=== PATIENT | male | born 1960 | race Caucasian/White ===

== ENCOUNTER 2017-04-05 18:38 | Emergency (ER) | payer OTHER ==
[~2017-04-05] VITALS: Ht 180.3 cm; Wt 123.6 kg
[~2017-04-05 18:38] MED LIST: BENTYL20 MG PO; CATAPRES0.1 MG PO; FOLIC ACID1 MG PO; LEXAPRO20 MG PO; LIBRIUM25 MG PO; METFORMIN HCL500 MG PO; METRONIDAZOLE500 MG PO; OMEPRAZOLE40 M1 PO; PERCOCET 5/31 TABLET PO; PRINIVIL20 MG PO; PROMETHAZINE HC25 M1 PO; RISPERIDONE1 MG PO; SEROQUEL100 MG PO; SOMA250 MG PO; THIAMINE HCL100 MG PO; TRAZODONE HCL50 MG PO; ZOFRAN4 MG PO
[2017-04-05 18:46] VITALS: BP 145/93
== END 2017-04-05 19:33 | disposition left against medical advice (07) ==
LOC: EME 18:38
DX: R10.9 Unspecified abdominal pain (principal); Z53.21 Procedure and treatment not carried out due to patient leaving prior to being seen by health care provider
CPT/HCPCS: 93005; 99281

== ENCOUNTER 2017-04-18 13:22 | Inpatient (IN) | payer OTHER ==
[~2017-04-18] VITALS: Ht 180.3 cm; Wt 123.5 kg
[2017-04-18 15:39] LABS: EOSINOPHIL (%) 0.5 % (0-5); HEMATOCRIT 46.2 % (38.0-50.0); IMMATURE GRANULOCYTE (%) 0.3 % (0.0-0.7); INSTRUMENT ABS NEUTROPHIL CT 4.9 K/uL; LYMPHOCYTE COUNT 1.8 K/uL (1.0-2.8); MCH 31.2 PG (29.0-34.0); MCHC 35.9 G/DL (30.0-36.0); MCV 86.8 FL (86-99); MEAN PLAT.VOLUME 10.8 uM^3 (9.0-12.4); MONOCYTE (%) 9.3 % (3-12); MONOCYTE COUNT 0.7 K/uL (0-0.8); NEUTROPHIL (%) 65.2 % (45-76); NEUTROPHIL COUNT 4.9 K/uL (1.8-6.4); PLATELET COUNT 176 K/uL (156-360); RBC DIS.WIDTH-CV 12.8 % (11.8-14.6); RBC DIS.WIDTH-SD 40.2 % (39-53); RED BLOOD COUNT 5.32 M/uL (4.00-5.50); WHITE BLOOD COUNT 7.5 K/uL (4.1-10.2)
[2017-04-18 15:58] LABS: CHLORIDE 103 mEq/L (99-109); POTASSIUM 3.5 mEq/L (3.7-5.4); SODIUM 136 mEq/L (136-147)
[2017-04-18 16:00] LABS: GLUCOSE 133 mg/dL (70-99)
[2017-04-18 16:01] LABS: ANION GAP 10 MEQ/L (2-14)
[2017-04-18 16:02] LABS: TOTAL BILIRUBIN 0.9 mg/dL (0.0-1.0)
[2017-04-18 16:03] LABS: SERUM ETHYL ALCOHOL < 10 mg/dL
[2017-04-18 16:03] LABS: AMPHETAMINE NEGATIVE (500 ng/mL); BARBITURATES NEGATIVE (200 ng/mL); BENZODIAZEPINES PRESUMPTIVE POSITIVE (150 ng/mL); COCAINE PRESUMPTIVE POSITIVE (150 ng/mL); INTERNAL CONTROLS VALID? YES; METHADONE NEGATIVE (200 ng/mL); METHAMPHETAMINE NEGATIVE (500 ng/mL); OPIATES (MORPHINE) NEGATIVE (100 ng/mL); OXYCODONE NEGATIVE (100 ng/mL); PHENCYCLIDINE NEGATIVE (25 ng/mL); PROPOXYPHENE NEGATIVE (300 ng/mL); THC CANNABINOIDS PRESUMPTIVE POSITIVE (50 ng/mL); TRICYCLIC ANTIDEPRESSANTS NEGATIVE (300 ng/mL)
[2017-04-18 16:04] LABS: GFR ESTIMATE (CALCULATED) > 59 mL/min/
[2017-04-18 16:04] LABS: ADD MEDTOX COMMENT Y
[2017-04-18 16:05] LABS: ALKALINE PHOSPHATASE 72 IU/L (3-129)
[2017-04-18 16:06] LABS: DIRECT BILIRUBIN 0.3 mg/dL (0.0-0.3); UREA NITROGEN (BUN) 11 mg/dL (9-23)
[2017-04-18 16:07] LABS: SALICYLATE < 5.0 MG/DL (15-30)
[2017-04-18 16:09] LABS: LIPASE 40 U/L (1.0-51.0)
[2017-04-18 16:48] LABS: BENZODIAZEPINES, URINE SCREEN POSITIVE (200 ng/mL)
[2017-04-18] MEDS ORDERED: PERCOCET 7.51 TABLET PO (19:32)
[2017-04-18] MEDS ORDERED: TIZANIDINE HCL4 MG PO (19:32)
[2017-04-18] MEDS ORDERED: DURAGESIC25 MCG TD (19:32)
[2017-04-18 20:03] LABS: ADD MIUA? YES; BILIRUBIN NEGATIVE; BLOOD NEGATIVE; COLOR AMBER ((YELLOW)); GLUCOSE (STRIP) 50; KETONES 20; LEUKOCYTES NEGATIVE; NITRITE NEGATIVE; PROTEIN (STRIP) 100; SPECIFIC GRAVITY 1.019 (1.000-1.030)
[2017-04-18 21:29] LABS: Estimated Average Glucose 134 mg/dL (70-123); HEMOGLOBIN A1c (GLYCOHEMOGLOB) 6.3 % HGB (Below 5.7)
[2017-04-18 21:36] LABS: RED BLOOD CELLS 0-5 /HPF (0-5)
[2017-04-18 21:37] LABS: EPITHELIAL CELLS 1+ /HPF; WHITE BLOOD CELLS 0-5 /HPF (0-5); WHITE BLOOD CELLS CLUMP RARE /HPF (0-5)
[2017-04-18 21:38] LABS: BACTERIA RARE /HPF; UCUL ADDED? NO
[2017-04-18 21:39] LABS: AMORPHOUS URATES CRYSTALS 4+; CALCIUM OXALATE CRYSTALS RARE /HPF; HYALINE CASTS RARE /LPF; MUCUS 3+ /LPF
[2017-04-18 22:26] VITALS: BP 135/94
[2017-04-19] VITALS (7 sets, daily range): BP systolic 132–158; BP diastolic 86–100
[2017-04-19 00:50] LABS: METH RESISTANT S AUREUS PCR NEGATIVE (NEGATIVE)
[2017-04-19 00:51] LABS: PROBE CHECK PASS; SPECIMEN PROCESSING CONTROL PASS
[2017-04-19 06:37] LABS: ALKALINE PHOSPHATASE 49 IU/L (3-129); ANION GAP 5 MEQ/L (2-14); CHLORIDE 105 MEQ/L (99-109); GFR ESTIMATE (CALCULATED) > 59 mL/min/; SAMPLE HEMOLYSIS CHECK 0; SAMPLE ICTERIC CHECK 0; SAMPLE LIPEMIA CHECK 0; SODIUM 136 MEQ/L (136-147); TOTAL BILIRUBIN 0.9 MG/DL (0.0-1.0); UREA NITROGEN (BUN) 10 mg/dL (9-23)
[2017-04-19 06:47] LABS: GLUCOSE 89 mg/dL (70-99)
[2017-04-19 06:54] LABS: HEMATOCRIT 39.2 % (38.0-50.0); MCH 31.3 PG (29.0-34.0); MCHC 34.7 G/DL (30.0-36.0); MCV 90.3 FL (86-99); MEAN PLAT.VOLUME 10.7 uM^3 (9.0-12.4); PLATELET COUNT 144 K/uL (156-360); RBC DIS.WIDTH-CV 13.3 % (11.8-14.6); RBC DIS.WIDTH-SD 44.2 % (39-53); RED BLOOD COUNT 4.34 M/uL (4.00-5.50); WHITE BLOOD COUNT 5.3 K/uL (4.1-10.2)
[2017-04-19 17:30] LABS: POINT-OF-CARE METER ID UU14162513
[2017-04-20 00:30] VITALS: BP 150/88
[2017-04-20 04:04] VITALS: BP 139/83
[2017-04-20 05:50] LABS: EOSINOPHIL (%) 3.4 % (0-5); EOSINOPHIL COUNT 0.1 K/uL (0-0.3); HEMATOCRIT 39.2 % (38.0-50.0); IMMATURE GRANULOCYTE (%) 0.5 % (0.0-0.7); INSTRUMENT ABS NEUTROPHIL CT 1.9 K/uL; LYMPHOCYTE COUNT 1.6 K/uL (1.0-2.8); MCH 31.7 PG (29.0-34.0); MCHC 34.7 G/DL (30.0-36.0); MCV 91.4 FL (86-99); MEAN PLAT.VOLUME 11.1 uM^3 (9.0-12.4); MONOCYTE (%) 10.2 % (3-12); MONOCYTE COUNT 0.4 K/uL (0-0.8); NEUTROPHIL (%) 45.8 % (45-76); NEUTROPHIL COUNT 1.9 K/uL (1.8-6.4); PLATELET COUNT 136 K/uL (156-360); RBC DIS.WIDTH-CV 13.4 % (11.8-14.6); RED BLOOD COUNT 4.29 M/uL (4.00-5.50); WHITE BLOOD COUNT 4.1 K/uL (4.1-10.2)
[2017-04-20 06:40] LABS: ALKALINE PHOSPHATASE 51 IU/L (3-129); ANION GAP 5 MEQ/L (2-14); CHLORIDE 103 MEQ/L (99-109); GFR ESTIMATE (CALCULATED) > 59 mL/min/; GLUCOSE 105 mg/dL (70-99); MAGNESIUM 2.2 mg/dl (1.3-2.7); POTASSIUM 3.8 MEQ/L (3.7-5.4); SAMPLE HEMOLYSIS CHECK 0; SAMPLE ICTERIC CHECK 0; SAMPLE LIPEMIA CHECK 0; SODIUM 137 MEQ/L (136-147); UREA NITROGEN (BUN) 10 mg/dL (9-23)
[2017-04-20 06:42] LABS: TOTAL BILIRUBIN 0.7 MG/DL (0.0-1.0)
[2017-04-20 08:56] VITALS: BP 128/64
[2017-04-20 09:30] LABS: TROP-I INTERPRETATION NEGATIVE; TROPONIN-I 0.02 ng/mL (0.0-0.30)
[2017-04-20 11:37] VITALS: BP 142/92
[2017-04-20 12:17] LABS: HIV-1/2 AB/AG COMBO Nonreactive
[2017-04-20 13:42] LABS: TROP-I INTERPRETATION NEGATIVE; TROPONIN-I 0.01 ng/mL (0.0-0.30)
[2017-04-20 15:50] VITALS: BP 141/88
[2017-04-20 19:56] LABS: TROP-I INTERPRETATION NEGATIVE; TROPONIN-I < 0.01 ng/mL (0.0-0.30)
[2017-04-20 20:09] VITALS: BP 130/86
[2017-04-22 08:42] LABS: HCV RNA (LOG IU/mL) 7.2 (<1.18)
== END 2017-04-20 20:42 | disposition left against medical advice (07) | DRG 917 ==
LOC: EME 13:22 → EDOF 20:03 → 5WEST 21:40
PROVIDERS: Emergency Medicine; Internal Medicine; Physician Assistant Medical
DX: T40.5X2A Poisoning by cocaine, intentional self-harm, initial encounter (principal); G92 Toxic encephalopathy; T40.7X2A Poisoning by cannabis (derivatives), intentional self-harm, initial encounter; A09 Infectious gastroenteritis and colitis, unspecified; G89.29 Other chronic pain; E66.9 Obesity, unspecified; F17.210 Nicotine dependence, cigarettes, uncomplicated; B18.2 Chronic viral hepatitis C; F10.10 Alcohol abuse, uncomplicated; I10 Essential (primary) hypertension; F11.10 Opioid abuse, uncomplicated; F12.10 Cannabis abuse, uncomplicated; F14.10 Cocaine abuse, uncomplicated; I47.2 Ventricular tachycardia; Z68.37 Body mass index [BMI] 37.0-37.9, adult; E11.40 Type 2 diabetes mellitus with diabetic neuropathy, unspecified; F32.89 Other specified depressive episodes; F41.9 Anxiety disorder, unspecified
CPT/HCPCS: 74177; 80048; 80053; 80076; 81003; 82948; 83036; 83630; 83690; 83735; 84484; 84999; 85025; 85027; 86703; 87177; 87493; 87522 90; 87641; 93005; 99281; 99285; C9113; G0378; G0480; J1644; J2060; J2270; J2405; J3411; J3475; J7030

== ENCOUNTER 2017-04-25 14:28 | Emergency (ER) | payer OTHER ==
[~2017-04-25] VITALS: Ht 180.3 cm; Wt 123.8 kg
[~2017-04-25 14:28] MED LIST changes: +DURAGESIC25 MCG TD; +PERCOCET 7.51 TABLET PO; +TIZANIDINE HCL4 MG PO
[2017-04-25 15:00] LABS: ADD MIUA? NO; BILIRUBIN NEGATIVE; BLOOD NEGATIVE; COLOR YELLOW ((YELLOW)); GLUCOSE (STRIP) NEGATIVE; KETONES NEGATIVE; LEUKOCYTES NEGATIVE; NITRITE NEGATIVE; PROTEIN (STRIP) NEGATIVE; SPECIFIC GRAVITY 1.006 (1.000-1.030); UCUL ADDED? NO; UROBILINOGEN 0.2 MG/DL (0.2-1.0)
[2017-04-25 16:01] LABS: HEMATOCRIT 40.9 % (38.0-50.0); MCH 31.5 PG (29.0-34.0); MCHC 35.2 G/DL (30.0-36.0); MCV 89.5 FL (86-99); MEAN PLAT.VOLUME 11.4 uM^3 (9.0-12.4); PLATELET COUNT 165 K/uL (156-360); RBC DIS.WIDTH-CV 13.6 % (11.8-14.6); RBC DIS.WIDTH-SD 44.1 % (39-53); RED BLOOD COUNT 4.57 M/uL (4.00-5.50); WHITE BLOOD COUNT 5.2 K/uL (4.1-10.2)
[2017-04-25 16:17] LABS: CHLORIDE 105 mEq/L (99-109); POTASSIUM 3.4 mEq/L (3.7-5.4); SODIUM 139 mEq/L (136-147)
[2017-04-25 16:19] LABS: GLUCOSE 122 mg/dL (70-99)
[2017-04-25 16:20] LABS: ANION GAP 11 MEQ/L (2-14)
[2017-04-25 16:23] LABS: GFR ESTIMATE (CALCULATED) > 59 mL/min/
[2017-04-25 16:30] LABS: TOTAL BILIRUBIN 0.5 MG/DL (0.0-1.0); UREA NITROGEN (BUN) 6 mg/dL (9-23)
[2017-04-25 16:31] LABS: ALKALINE PHOSPHATASE 61 IU/L (3-129); LIPASE 31 U/L (1.0-51.0); SERUM ETHYL ALCOHOL < 10 mg/dL
[2017-04-25 18:05] LABS: TROP-I INTERPRETATION NEGATIVE; TROPONIN-I < 0.01 ng/mL (0.0-0.30)
[2017-04-25 18:29] VITALS: BP 150/91
== END 2017-04-25 18:31 | disposition home or self-care (01) ==
LOC: EME 14:28
DX: R10.9 Unspecified abdominal pain (principal); S30.1XXD Contusion of abdominal wall, subsequent encounter; W19.XXXD Unspecified fall, subsequent encounter; Z87.442 Personal history of urinary calculi; I10 Essential (primary) hypertension; E11.9 Type 2 diabetes mellitus without complications; R56.9 Unspecified convulsions; Z86.14 Personal history of Methicillin resistant Staphylococcus aureus infection; F17.200 Nicotine dependence, unspecified, uncomplicated
CPT/HCPCS: 73564; 74020; 74177; 80053; 81003; 83690; 84484; 85027; 93005; 99281; 99285; G0480; J3010; J7030

== ENCOUNTER 2017-09-30 16:48 | Inpatient (IN) | payer OTHER ==
[~2017-09-30] VITALS: Ht 180.3 cm; Wt 115.0 kg
[~2017-09-30 16:48] MED LIST changes: -DURAGESIC25 MCG TD; +DURAGESIC50 MCG TD; +PERCOCET 10/1 TABLET PO; -PERCOCET 7.51 TABLET PO
[2017-09-30 17:43] LABS: HEMATOCRIT 37.5 % (38.0-50.0); MCH 32.2 PG (29.0-34.0); MCHC 35.7 G/DL (30.0-36.0); MCV 90.1 FL (86-99); PLATELET COUNT 221 K/uL (156-360); RBC DIS.WIDTH-CV 13.2 % (11.8-14.6); RBC DIS.WIDTH-SD 43.3 % (39-53); RED BLOOD COUNT 4.16 M/uL (4.00-5.50); WHITE BLOOD COUNT 7.8 K/uL (4.1-10.2)
[2017-09-30 17:51] LABS: CHLORIDE 95 mEq/L (99-109); POTASSIUM 2.9 mEq/L (3.7-5.4); SODIUM 133 mEq/L (136-147)
[2017-09-30 17:53] LABS: GLUCOSE 139 mg/dL (70-99)
[2017-09-30 17:54] LABS: ANION GAP 15 MEQ/L (2-14)
[2017-09-30 17:57] LABS: GFR ESTIMATE (CALCULATED) > 59 mL/min/ (58.99-99999); UREA NITROGEN (BUN) 13 mg/dL (9-23)
[2017-09-30 18:05] LABS: TROP-I INTERPRETATION NEGATIVE; TROPONIN-I < 0.01 ng/mL (0.0-0.30)
[2017-09-30 19:05] LABS: TOTAL BILIRUBIN 0.5 mg/dL (0.0-1.0)
[2017-09-30 19:06] LABS: ALKALINE PHOSPHATASE 121 IU/L (3-129)
[2017-09-30 19:08] LABS: DIRECT BILIRUBIN 0.3 mg/dL (0.0-0.3)
[2017-09-30 19:09] LABS: LIPASE 59 U/L (1.0-51.0)
[2017-09-30] MEDS ORDERED: DULOXETINE HCL60 MG PO (20:59)
[2017-09-30] MEDS ORDERED: LATUDA60 MG PO (20:59)
[2017-09-30] MEDS ORDERED: METOPROLOL SUCC25 MG PO (21:00)
[2017-09-30] MEDS ORDERED: LOSARTAN POTASS50 MG PO (21:01)
[2017-09-30] MEDS ORDERED: LORAZEPAM1 MG PO (21:01)
[2017-09-30] MEDS ORDERED: HYGROTON25 MG PO (21:02)
[2017-09-30] MEDS ORDERED: TRAMADOL HCL50 MG PO (21:02)
[2017-09-30] MEDS ORDERED: IBUPROFEN400 MG PO (21:02)
[2017-09-30] MEDS ORDERED: BACTRIM,SEPT1 TABLET PO (21:02)
[2017-09-30] MEDS ORDERED: LATUDA40 MG PO (21:03)
[2017-09-30] MEDS ORDERED: BUPROPION HCL100 M1 PO (21:04)
[2017-09-30] MEDS ORDERED: DULOXETINE HCL30 MG PO (21:05)
[2017-09-30] MEDS ORDERED: LOPRESSOR25 MG PO (21:05)
[2017-10-01 02:41] VITALS: BP 139/91
[2017-10-01 02:49] LABS: MAGNESIUM 1.3 mg/dL (1.3-2.7)
[2017-10-01 02:53] LABS: SERUM ETHYL ALCOHOL < 10 mg/dL
[2017-10-01 03:00] VITALS: BP 134/90
[2017-10-01 03:13] LABS: POINT-OF-CARE METER ID UU14149397
[2017-10-01 04:04] VITALS: BP 134/90
[2017-10-01 04:17] LABS: ADD MIUA? NO; BILIRUBIN NEGATIVE; BLOOD NEGATIVE; COLOR YELLOW ((YELLOW)); GLUCOSE (STRIP) NEGATIVE; KETONES NEGATIVE; LEUKOCYTES NEGATIVE; NITRITE NEGATIVE; PROTEIN (STRIP) NEGATIVE; SPECIFIC GRAVITY 1.013 (1.000-1.030); UCUL ADDED? NO; UROBILINOGEN 0.2 MG/DL (0.2-1.0)
[2017-10-01 04:59] LABS: AMPHETAMINES QUANT VALUE 0 NG/ML; BARBITUATES QUANT VALUE 0 NG/ML; BENZODIAZEPINES QUANT VALUE 0 NG/ML; BENZODIAZEPINES, URINE SCREEN Negative (200 ng/mL); PHENCYCLIDINE QUANT VALUE 0 NG/ML
[2017-10-01 07:01] LABS: POINT-OF-CARE METER ID UU14149397
[2017-10-01 07:41] VITALS: BP 153/81
[2017-10-01 13:20] LABS: POINT-OF-CARE METER ID UU14149397
[2017-10-01 17:05] LABS: POINT-OF-CARE METER ID UU14208753
[2017-10-01 19:34] VITALS: BP 132/79
[2017-10-01 23:37] VITALS: BP 126/79
[2017-10-02 00:04] LABS: POINT-OF-CARE METER ID UU14188577
[2017-10-02 04:23] VITALS: BP 116/66
[2017-10-02 06:10] LABS: POINT-OF-CARE METER ID UU14188577
[2017-10-02 08:04] VITALS: BP 127/80
[2017-10-02 11:29] VITALS: BP 124/75
[2017-10-02 11:44] LABS: POINT-OF-CARE METER ID UU14188577
[2017-10-02 16:06] VITALS: BP 109/64
[2017-10-02 16:29] LABS: POINT-OF-CARE METER ID UU14188577
[2017-10-02 19:15] VITALS: BP 112/66
[2017-10-02 21:32] LABS: POINT-OF-CARE METER ID UU14117124
[2017-10-03 00:09] VITALS: BP 122/64
[2017-10-03 04:43] VITALS: BP 110/61
[2017-10-03 06:18] LABS: POINT-OF-CARE METER ID UU14117124
[2017-10-03 07:48] VITALS: BP 122/84
[2017-10-03 11:01] VITALS: BP 118/69
[2017-10-03 11:30] LABS: POINT-OF-CARE METER ID UU14117124
[2017-10-03 15:40] VITALS: BP 122/77
[2017-10-03 16:52] LABS: POINT-OF-CARE METER ID UU14208753
[2017-10-04 00:11] VITALS: BP 159/61
[2017-10-04 06:43] LABS: POINT-OF-CARE METER ID UU14117124
[2017-10-04 08:20] VITALS: BP 134/76
[2017-10-04] MEDS ORDERED: FENTANYL1 EAC1 TD (09:15)
[2017-10-04] MEDS ORDERED: TRAMADOL HCL50 MG PO (09:15)
[2017-10-04] MEDS ORDERED: PERCOCET 2.51 TABLET PO (09:15)
[2017-10-04 12:10] LABS: POINT-OF-CARE METER ID UU14117124
== END 2017-10-04 13:38 | DRG 563 ==
LOC: EXP 16:48 → EME 16:48 → EDOF 10-01 00:50 → 3EAST 10-01 00:50 → ENRESERV 10-01 01:18 → 3EAST 10-01 02:32
PROVIDERS: Hospitalist; Physician Assistant; Surgery
PROC: 0SSGXZZ Reposition Left Ankle Joint, External Approach (ICD-10-PCS; principal; 2017-10-01)
PROC: HZ2ZZZZ Detoxification Services for Substance Abuse Treatment (ICD-10-PCS; 2017-10-01)
DX: S82.435A Nondisplaced oblique fracture of shaft of left fibula, initial encounter for closed fracture (principal); S93.05XA Dislocation of left ankle joint, initial encounter; S83.242A Other tear of medial meniscus, current injury, left knee, initial encounter; S83.412A Sprain of medial collateral ligament of left knee, initial encounter; S83.512A Sprain of anterior cruciate ligament of left knee, initial encounter; S83.522A Sprain of posterior cruciate ligament of left knee, initial encounter; S09.90XA Unspecified injury of head, initial encounter; W10.8XXA Fall (on) (from) other stairs and steps, initial encounter; Y92.008 Other place in unspecified non-institutional (private) residence as the place of occurrence of the external cause; R07.9 Chest pain, unspecified; E87.6 Hypokalemia; E87.1 Hypo-osmolality and hyponatremia; I10 Essential (primary) hypertension; F31.9 Bipolar disorder, unspecified; F17.200 Nicotine dependence, unspecified, uncomplicated; E11.40 Type 2 diabetes mellitus with diabetic neuropathy, unspecified; F14.10 Cocaine abuse, uncomplicated; F10.10 Alcohol abuse, uncomplicated; G89.4 Chronic pain syndrome; F11.10 Opioid abuse, uncomplicated; M54.5 Low back pain; K50.90 Crohn's disease, unspecified, without complications; F41.9 Anxiety disorder, unspecified; G43.909 Migraine, unspecified, not intractable, without status migrainosus; Z86.73 Personal history of transient ischemic attack (TIA), and cerebral infarction without residual deficits; Z82.49 Family history of ischemic heart disease and other diseases of the circulatory system
CPT/HCPCS: 70450; 71020; 72170; 73564; 73600; 73610; 73706; 73721; 80048; 80076; 80306 90; 81003; 82948; 83690; 83735; 84484; 85027; 93005; 99281; 99285; G0480; J1644; J2270; J2405; J3411; J7030; J7120

== ENCOUNTER 2017-10-21 12:58 | Day surgery (SDC) | payer OTHER ==
[~2017-10-21] VITALS: Ht 180.3 cm; Wt 125.0 kg
[~2017-10-21 12:58] MED LIST changes: +BACTRIM,SEPT1 TABLET PO; +BUPROPION HCL100 M1 PO; +CYMBALTA60 MG PO; +DULOXETINE HCL30 MG PO; +DULOXETINE HCL60 MG PO; -DURAGESIC50 MCG TD; +DURAGESIC75 MCG TD; +FENTANYL1 EAC1 TD; +HYGROTON25 MG PO; +IBUPROFEN400 MG PO; +LATUDA40 MG PO; +LATUDA60 MG PO; +LOPRESSOR25 MG PO; +LORAZEPAM1 MG PO; +LOSARTAN POTASS50 MG PO; +METOPROLOL SUCC25 MG PO; +PAIN RELIEF650 MG PO; +PERCOCET 2.51 TABLET PO; +TOPROL XL25 MG PO; +TRAMADOL HCL50 MG PO; +ULTRAM50 MG PO
[2017-10-21 14:08] VITALS: BP 126/68
[2017-10-21 14:43] LABS: CHLORIDE 96 MEQ/L (99-109); POTASSIUM 3.5 MEQ/L (3.7-5.4); SODIUM 133 MEQ/L (136-147)
[2017-10-21 14:48] LABS: CREATININE 0.8 MG/DL (0.6-1.3); GFR ESTIMATE (CALCULATED) > 59 mL/min/ (58.99-99999); GLUCOSE 120 mg/dL (70-99); UREA NITROGEN (BUN) 8 mg/dL (9-23)
[2017-10-21 18:25] VITALS: BP 111/70
[2017-10-21 18:49] VITALS: BP 118/70
== END 2017-10-21 18:54 ==
LOC: SDC 12:58
PROVIDERS: Anesthesiology
PROC: 0SSG04Z Reposition Left Ankle Joint with Internal Fixation Device, Open Approach (ICD-10-PCS; principal; 2017-10-21)
DX: S93.432A Sprain of tibiofibular ligament of left ankle, initial encounter (principal); I10 Essential (primary) hypertension; W19.XXXA Unspecified fall, initial encounter; R94.31 Abnormal electrocardiogram [ECG] [EKG]; F17.200 Nicotine dependence, unspecified, uncomplicated; Z86.73 Personal history of transient ischemic attack (TIA), and cerebral infarction without residual deficits
CPT/HCPCS: 71046; 73600; 76000; 80048; 87641; C1713; J0131; J0690; J1100; J1170; J1885; J2250; J2405; J3010; J3475; S0020

== ENCOUNTER 2017-12-02 20:22 | Emergency (ER) | payer OTHER ==
[~2017-12-02] VITALS: Ht 180.3 cm; Wt 123.5 kg
[2017-12-03 00:29] VITALS: BP 121/72
== END 2017-12-03 01:15 | disposition home or self-care (01) ==
LOC: EME 20:22
DX: F10.129 Alcohol abuse with intoxication, unspecified (principal); Y90.9 Presence of alcohol in blood, level not specified; Z98.890 Other specified postprocedural states; M79.605 Pain in left leg; E11.40 Type 2 diabetes mellitus with diabetic neuropathy, unspecified; I10 Essential (primary) hypertension; Z86.73 Personal history of transient ischemic attack (TIA), and cerebral infarction without residual deficits; G89.29 Other chronic pain; K21.9 Gastro-esophageal reflux disease without esophagitis; B19.20 Unspecified viral hepatitis C without hepatic coma; F17.200 Nicotine dependence, unspecified, uncomplicated; Z88.6 Allergy status to analgesic agent
CPT/HCPCS: 99281; 99284

== ENCOUNTER 2017-12-05 10:13 | Emergency (ER) | payer OTHER ==
[~2017-12-05] VITALS: Ht 180.3 cm; Wt 120.0 kg
[2017-12-05 10:45] LABS: HEMATOCRIT 36.3 % (38.0-50.0); HEMOGLOBIN 13.1 G/DL (12.5-16.6); MCHC 36.1 G/DL (30.0-36.0); PLATELET COUNT 230 K/uL (156-360); RBC DIS.WIDTH-CV 12.8 % (11.8-14.6); RBC DIS.WIDTH-SD 40.1 % (39-53); RED BLOOD COUNT 4.22 M/uL (4.00-5.50); WHITE BLOOD COUNT 7.1 K/uL (4.1-10.2)
[2017-12-05] MEDS ORDERED: FLOMAX0.4 MG PO (10:53)
[2017-12-05 10:57] LABS: CHLORIDE 101 mEq/L (99-109); POTASSIUM 3.4 mEq/L (3.7-5.4); SODIUM 136 mEq/L (136-147)
[2017-12-05 10:59] LABS: GLUCOSE 106 mg/dL (70-99)
[2017-12-05 11:02] LABS: SERUM ETHYL ALCOHOL < 10 mg/dL
[2017-12-05 11:03] LABS: CREATININE 0.7 mg/dL (0.6-1.3); GFR ESTIMATE (CALCULATED) > 59 mL/min/ (58.99-99999)
[2017-12-05 11:04] LABS: UREA NITROGEN (BUN) 6 mg/dL (9-23)
[2017-12-05 11:08] LABS: APPEARANCE CLEAR ((CLEAR)); BILIRUBIN NEGATIVE; BLOOD NEGATIVE; COLOR YELLOW ((YELLOW)); GLUCOSE (STRIP) NEGATIVE; KETONES NEGATIVE; LEUKOCYTES NEGATIVE; NITRITE NEGATIVE; PROTEIN (STRIP) NEGATIVE; SPECIFIC GRAVITY 1.006 (1.000-1.030); UCUL ADDED? NO; UROBILINOGEN 0.2 MG/DL (0.2-1.0)
[2017-12-05 11:24] LABS: AMPHETAMINE NEGATIVE (500 ng/mL); BARBITURATES NEGATIVE (200 ng/mL); BENZODIAZEPINES NEGATIVE (150 ng/mL); BUPRENORPHINE NEGATIVE (10 ng/mL); COCAINE NEGATIVE (150 ng/mL); METHADONE NEGATIVE (200 ng/mL); METHAMPHETAMINE NEGATIVE (500 ng/mL); OPIATES (MORPHINE) NEGATIVE (100 ng/mL); OXYCODONE NEGATIVE (100 ng/mL); PHENCYCLIDINE NEGATIVE (25 ng/mL); PROPOXYPHENE NEGATIVE (300 ng/mL); THC CANNABINOIDS PRESUMPTIVE POSITIVE (50 ng/mL); TRICYCLIC ANTIDEPRESSANTS NEGATIVE (300 ng/mL)
[2017-12-05 13:02] VITALS: BP 155/85
== END 2017-12-05 13:03 ==
LOC: EME 10:13 → EDOF 12:07 → EME 12:07
PROVIDERS: Emergency Medicine Emergency Medical Services
DX: F31.9 Bipolar disorder, unspecified (principal); R45.851 Suicidal ideations; M79.1 Myalgia; Z98.890 Other specified postprocedural states; R33.9 Retention of urine, unspecified; M79.605 Pain in left leg; G89.29 Other chronic pain; R44.0 Auditory hallucinations; M54.9 Dorsalgia, unspecified; I10 Essential (primary) hypertension; Z86.73 Personal history of transient ischemic attack (TIA), and cerebral infarction without residual deficits; Z87.442 Personal history of urinary calculi; F17.200 Nicotine dependence, unspecified, uncomplicated
CPT/HCPCS: 80048; 81003; 84999; 85027; 90837; 99281; 99285; G0480; J1630

== ENCOUNTER 2018-04-23 18:05 | Emergency (ER) | payer OTHER ==
[~2018-04-23] VITALS: Ht 180.3 cm; Wt 133.4 kg
[~2018-04-23 18:05] MED LIST changes: +FLOMAX0.4 MG PO
[2018-04-23 19:25] VITALS: BP 151/96
== END 2018-04-23 19:25 | disposition home or self-care (01) ==
LOC: EME 18:05
DX: M54.12 Radiculopathy, cervical region (principal); G89.29 Other chronic pain; I10 Essential (primary) hypertension; Z86.73 Personal history of transient ischemic attack (TIA), and cerebral infarction without residual deficits; B19.20 Unspecified viral hepatitis C without hepatic coma; Z79.891 Long term (current) use of opiate analgesic; E11.40 Type 2 diabetes mellitus with diabetic neuropathy, unspecified; K21.9 Gastro-esophageal reflux disease without esophagitis; Z88.6 Allergy status to analgesic agent; F17.200 Nicotine dependence, unspecified, uncomplicated
CPT/HCPCS: 99281; 99284

== ENCOUNTER 2018-05-25 14:46 | Emergency (ER) | payer OTHER ==
[~2018-05-25] VITALS: Ht 180.3 cm; Wt 129.5 kg
[2018-05-25 16:23] LABS: HEMATOCRIT 40.5 % (38.0-50.0); HEMOGLOBIN 14.5 G/DL (12.5-16.6); MCH 31.4 PG (29.0-34.0); MCHC 35.8 G/DL (30.0-36.0); MCV 87.7 FL (86-99); PLATELET COUNT 196 K/uL (156-360); RED BLOOD COUNT 4.62 M/uL (4.00-5.50); WHITE BLOOD COUNT 7.5 K/uL (4.1-10.2)
[2018-05-25 16:26] LABS: APPEARANCE CLEAR ((CLEAR)); BILIRUBIN NEGATIVE; BLOOD NEGATIVE; COLOR STRAW ((YELLOW)); GLUCOSE (STRIP) NEGATIVE; KETONES NEGATIVE; LEUKOCYTES NEGATIVE; NITRITE NEGATIVE; PROTEIN (STRIP) NEGATIVE; SPECIFIC GRAVITY 1.005 (1.000-1.030); UROBILINOGEN 0.2 MG/DL (0.2-1.0)
[2018-05-25 16:43] LABS: CHLORIDE 104 mEq/L (99-109); POTASSIUM 3.5 mEq/L (3.7-5.4); SODIUM 139 mEq/L (136-147)
[2018-05-25 16:44] LABS: GLUCOSE 95 mg/dL (70-99)
[2018-05-25 16:48] LABS: SERUM ETHYL ALCOHOL < 10 mg/dL
[2018-05-25 16:49] LABS: CREATININE 0.8 mg/dL (0.6-1.3); GFR ESTIMATE (CALCULATED) > 59 mL/min/ (58.99-99999)
[2018-05-25 16:50] LABS: ERTH.SED.RATE 20 MM/HR (0-20); UREA NITROGEN (BUN) 9 mg/dL (9-23)
[2018-05-25 16:52] LABS: ACETAMINOPHEN (TYLENOL) < 10 mcg/mL (10-30); SALICYLATE < 5.0 MG/DL (15-30)
[2018-05-25 17:17] LABS: AMPHETAMINE NEGATIVE (500 ng/mL); BARBITURATES NEGATIVE (200 ng/mL); BENZODIAZEPINES PRESUMPTIVE POSITIVE (150 ng/mL); BUPRENORPHINE NEGATIVE (10 ng/mL); COCAINE NEGATIVE (150 ng/mL); METHADONE NEGATIVE (200 ng/mL); METHAMPHETAMINE NEGATIVE (500 ng/mL); OPIATES (MORPHINE) NEGATIVE (100 ng/mL); OXYCODONE NEGATIVE (100 ng/mL); PHENCYCLIDINE NEGATIVE (25 ng/mL); PROPOXYPHENE NEGATIVE (300 ng/mL); THC CANNABINOIDS NEGATIVE (50 ng/mL); TRICYCLIC ANTIDEPRESSANTS NEGATIVE (300 ng/mL)
[2018-05-25 22:26] LABS: BENZODIAZEPINES, URINE SCREEN Negative (200 ng/mL)
[2018-05-26 02:17] LABS: ALBUMIN 4.2 g/dL (3.2-4.8)
[2018-05-26 02:19] LABS: TOTAL PROTEIN 7.8 g/dL (6.4-8.3)
[2018-05-26 02:21] LABS: TOTAL BILIRUBIN 0.4 mg/dL (0.0-1.0)
[2018-05-26 02:22] LABS: ALKALINE PHOSPHATASE 96 IU/L (3-129)
[2018-05-26 02:25] LABS: ALT (GPT) 31 IU/L (3-49); AST (GOT) 27 IU/L (2-34); DIRECT BILIRUBIN 0.1 mg/dL (0.0-0.3)
[2018-05-26 06:13] VITALS: BP 143/78
== END 2018-05-26 06:13 ==
LOC: EME 14:46
PROVIDERS: Nurse Practitioner Family
DX: R45.851 Suicidal ideations (principal); G89.29 Other chronic pain; M54.5 Low back pain; M25.562 Pain in left knee; N39.44 Nocturnal enuresis; I10 Essential (primary) hypertension; Z86.73 Personal history of transient ischemic attack (TIA), and cerebral infarction without residual deficits; Z87.442 Personal history of urinary calculi; F17.200 Nicotine dependence, unspecified, uncomplicated
CPT/HCPCS: 80048; 80076; 81003; 84999; 85027; 85651; 90837; 99281; 99285; G0480